=== PATIENT | female | born 1930 | race African-American/Black ===

== ENCOUNTER 2018-07-07 17:24 | Inpatient (IN) ==
[2018-07-07] MEDS ORDERED: hydrALAZINE 20 MG/1 ML VIAL IV STA (18:58)
[2018-07-07] MEDS ORDERED: ONDANSETRON 4 MG/2 ML VIAL IV STA (19:17)
[2018-07-07 19:18] LABS: Basophils # 0.1 10*3/uL (0.0-0.2); Basophils % 1.1 % (0.0-0.8); Eosinophils # 0.1 10*3/uL (0.0-0.87); Eosinophils % 1.4 % (0.00-10.9); Hematocrit 38.9 VOL% (35.7-47.0); Hemoglobin 11.8 GM/DL (12.0-16.0); Immature Granulocytes % 0.4 %; Immature Granulocytes Absolute 0.03 #; Lymphocytes # 2.8 10*3/uL (1.4-4.0); Lymphocytes % 32.5 % (21.3-54.2); Mean Corpuscular HGB Conc 30.3 GM/DL (32-36); Mean Corpuscular Hemoglobin 28 PG (27-34); Mean Corpuscular Volume 92.6 FL (87-102); Mean Platelet Volume 11.8 FL (9.6-12.0); Monocytes # 0.9 10*3/uL (0.11-0.8); Monocytes % 10.5 % (1.7-12.7); Neutrophils # 4.6 10*3/uL (1.4-7.4); Neutrophils % 54.1 % (38.7-73.9); Platelet Count 222 T/CUMM (130-400); Red Cell Distribution Width 18.7 % (9.3-17.3); White Blood Count 8.5 T/CUMM (4-12)
[2018-07-07] MEDS ORDERED: ONDANSETRON 4 MG/2 ML VIAL ONE (19:18)
[2018-07-07 19:37] LABS: Albumin 3.8 G/DL (3.4-5.0); Bilirubin,Total 1.2 MG/DL (0.2-1.0); Calcium 8.8 MG/DL (8.5-10.1); Osmolality,Calculated 283.3 MOS/KG (273-304); Potassium 4.4 MMOL/L (3.5-5.1); Total Protein 7.4 G/DL (6.4-8.3)
[2018-07-07] MEDS ORDERED: MAGNESIUM SULF RIDER 2 GM in PREMIX 1 EACH IV PRN (20:27)
[2018-07-07] MEDS ORDERED: ONDANSETRON 4 MG/2 ML VIAL IV PRN (20:27)
[2018-07-07] MEDS ORDERED: ACETAMINOPHEN 325 MG TABLET PO PRN (20:27)
[2018-07-07] MEDS ORDERED: MAGNESIUM SULF RIDER 4 GM in PREMIX 1 EACH IV PRN (20:27)
[2018-07-07] MEDS ORDERED: PANTOPRAZOLE 40 MG VIAL IV STA ×2 (20:35→20:36)
[2018-07-07] MEDS ORDERED: FUROSEMIDE 40 MG/4 ML VIAL IV STA ×2 (20:50→21:24)
[2018-07-07] MEDS ORDERED: OXAZEPAM 10 MG CAPSULE PO SCH (21:24)
[2018-07-07] MEDS ORDERED: ALBUTEROL 2.5 MG/3 ML NEB RESP TX PRN (21:24)
[2018-07-07] MEDS: ENOXAPARIN 40 MG/0.4 ML SYRINGE SUBCUT SCH (22:29)
[2018-07-07] MEDS: OXAZEPAM 10 MG CAPSULE PO SCH (22:30)
[2018-07-07] MEDS: MECLIZINE 25 MG TABLET PO SCH (22:30)
[2018-07-07] MEDS: CARVEDILOL 25 MG TABLET PO SCH (22:30)
[2018-07-08 07:55] LABS: Albumin 3.4 G/DL (3.4-5.0); Bilirubin,Total 1.2 MG/DL (0.2-1.0); Calcium 8.6 MG/DL (8.5-10.1); Osmolality,Calculated 286.1 MOS/KG (273-304); Potassium 4.3 MMOL/L (3.5-5.1); Total Protein 6.8 G/DL (6.4-8.3)
[2018-07-08] MEDS: LORATADINE 10 MG TABLET PO SCH (08:43)
[2018-07-08] MEDS: CARVEDILOL 25 MG TABLET PO SCH ×2 (08:43→17:38)
[2018-07-08] MEDS: VENLAFAXINE 75 MG TABLET PO SCH (08:43)
[2018-07-08] MEDS: CLOPIDOGREL 75 MG TABLET PO SCH (08:43)
[2018-07-08] MEDS: MECLIZINE 25 MG TABLET PO SCH ×2 (08:43→21:35)
[2018-07-08] MEDS: PANTOPRAZOLE 40 MG TABLET PO SCH (08:43)
[2018-07-08] MEDS: FUROSEMIDE 40 MG/4 ML VIAL IV SCH ×2 (08:44→17:38)
[2018-07-08] MEDS: SPIRONOLACTONE 25 MG TABLET PO SCH (08:44)
[2018-07-08] MEDS: DONEPEZIL 10 MG TABLET PO SCH (08:44)
[2018-07-08] MEDS: ASPIRIN EC 81 MG TABLET PO SCH (08:46)
[2018-07-08] MEDS ORDERED: ENALAPRIL 10 MG TABLET PO SCH (09:00)
[2018-07-08] MEDS ORDERED: ENALAPRIL 20 MG TABLET PO SCH (13:57)
[2018-07-08] MEDS ORDERED: FUROSEMIDE 40 MG/4 ML VIAL IV ONE (14:11)
[2018-07-08] MEDS: INSULIN REGULAR 100 UNIT/ML SUBCUT SCH ×2 (17:13→21:42)
[2018-07-08] MEDS: ENOXAPARIN 40 MG/0.4 ML SYRINGE SUBCUT SCH (21:35)
[2018-07-08] MEDS: OXAZEPAM 10 MG CAPSULE PO SCH (22:35)
[2018-07-09 05:54] LABS: Basophils # 0.1 10*3/uL (0.0-0.2); Eosinophils # 0.2 10*3/uL (0.0-0.87); Eosinophils % 3.1 % (0.00-10.9); Hematocrit 38.7 VOL% (35.7-47.0); Hemoglobin 12.1 GM/DL (12.0-16.0); Immature Granulocytes % 0.1 %; Immature Granulocytes Absolute 0.01 #; Lymphocytes # 2.7 10*3/uL (1.4-4.0); Lymphocytes % 38.1 % (21.3-54.2); Mean Corpuscular HGB Conc 31.3 GM/DL (32-36); Mean Corpuscular Hemoglobin 29 PG (27-34); Mean Corpuscular Volume 91.9 FL (87-102); Mean Platelet Volume 11.8 FL (9.6-12.0); Monocytes # 0.8 10*3/uL (0.11-0.8); Monocytes % 11.3 % (1.7-12.7); Neutrophils # 3.3 10*3/uL (1.4-7.4); Neutrophils % 46.4 % (38.7-73.9); Platelet Count 215 T/CUMM (130-400); Red Blood Count 4.21 MC/CUMM (3.8-5.5); Red Cell Distribution Width 18.6 % (9.3-17.3); White Blood Count 7.2 T/CUMM (4-12)
[2018-07-09 06:13] LABS: Calcium 8.5 MG/DL (8.5-10.1); Osmolality,Calculated 281.4 MOS/KG (273-304); Potassium 3.7 MMOL/L (3.5-5.1)
[2018-07-09 06:16] LABS: Risk Ratio 3.42; VLDL CHOLESTEROL 12.6 MG/DL
[2018-07-09] MEDS: INSULIN REGULAR 100 UNIT/ML SUBCUT SCH ×4 (07:52→21:19)
[2018-07-09] MEDS: CLOPIDOGREL 75 MG TABLET PO SCH (08:02)
[2018-07-09] MEDS: CARVEDILOL 25 MG TABLET PO SCH ×2 (08:02→16:39)
[2018-07-09] MEDS: VENLAFAXINE 75 MG TABLET PO SCH (08:02)
[2018-07-09] MEDS: PANTOPRAZOLE 40 MG TABLET PO SCH (08:02)
[2018-07-09] MEDS: ENALAPRIL 10 MG TABLET PO SCH (08:02)
[2018-07-09] MEDS: DONEPEZIL 10 MG TABLET PO SCH (08:02)
[2018-07-09] MEDS: ASPIRIN EC 81 MG TABLET PO SCH (08:02)
[2018-07-09] MEDS: SPIRONOLACTONE 25 MG TABLET PO SCH (08:02)
[2018-07-09] MEDS: LORATADINE 10 MG TABLET PO SCH (08:02)
[2018-07-09] MEDS: MECLIZINE 25 MG TABLET PO SCH ×2 (08:02→21:18)
[2018-07-09] MEDS: FUROSEMIDE 40 MG/4 ML VIAL IV SCH ×2 (08:03→16:39)
[2018-07-09] MEDS ORDERED: BISACODYL 10 MG SUPP RECTAL ONE (10:00)
[2018-07-09] MEDS: SIMETHICONE CHEW 125 MG TABLET PO SCH ×4 (12:01→21:18)
[2018-07-09] MEDS: POLYETHYLENE GLYCOL POWDER 17 GM PACK PO SCH ×2 (12:13→21:18)
[2018-07-09 13:10] LABS: Troponin I 0.046 NG/ML (0.00-0.045)
[2018-07-09 15:24] LABS: Troponin I 0.046 NG/ML (0.00-0.045)
[2018-07-09 19:19] LABS: Troponin I 0.047 NG/ML (0.00-0.045)
[2018-07-09] MEDS: ENOXAPARIN 40 MG/0.4 ML SYRINGE SUBCUT SCH (21:19)
[2018-07-09] MEDS: OXAZEPAM 10 MG CAPSULE PO SCH (21:44)
[2018-07-10 04:40] LABS: Basophils # 0.1 10*3/uL (0.0-0.2); Basophils % 0.9 % (0.0-0.8); Eosinophils # 0.3 10*3/uL (0.0-0.87); Eosinophils % 3.7 % (0.00-10.9); Immature Granulocytes % 0.3 %; Immature Granulocytes Absolute 0.02 #; Lymphocytes # 2.5 10*3/uL (1.4-4.0); Lymphocytes % 36.3 % (21.3-54.2); Mean Corpuscular HGB Conc 29.7 GM/DL (32-36); Mean Corpuscular Hemoglobin 28 PG (27-34); Mean Corpuscular Volume 93.6 FL (87-102); Mean Platelet Volume 11.8 FL (9.6-12.0); Monocytes # 0.8 10*3/uL (0.11-0.8); Monocytes % 11.7 % (1.7-12.7); Neutrophils # 3.2 10*3/uL (1.4-7.4); Neutrophils % 47.1 % (38.7-73.9); Platelet Count 215 T/CUMM (130-400); Red Blood Count 4.35 MC/CUMM (3.8-5.5); Red Cell Distribution Width 18.3 % (9.3-17.3); White Blood Count 6.8 T/CUMM (4-12)
[2018-07-10 04:47] LABS: Hemoglobin 12.2 GM/DL (12.0-16.0)
[2018-07-10 04:48] LABS: Hematocrit 40.5 VOL% (35.7-47.0)
[2018-07-10 04:52] LABS: Calcium 8.1 MG/DL (8.5-10.1); Osmolality,Calculated 275.7 MOS/KG (273-304); Potassium 4.2 MMOL/L (3.5-5.1)
[2018-07-10] MEDS: VENLAFAXINE 75 MG TABLET PO SCH (09:45)
[2018-07-10] MEDS: MECLIZINE 25 MG TABLET PO SCH (09:45)
[2018-07-10] MEDS: INSULIN REGULAR 100 UNIT/ML SUBCUT SCH ×2 (09:45→12:02)
[2018-07-10] MEDS: SIMETHICONE CHEW 125 MG TABLET PO SCH ×2 (09:45→12:49)
[2018-07-10] MEDS: LORATADINE 10 MG TABLET PO SCH (09:45)
[2018-07-10] MEDS: SPIRONOLACTONE 25 MG TABLET PO SCH (09:45)
[2018-07-10] MEDS: FUROSEMIDE 40 MG/4 ML VIAL IV SCH (09:46)
[2018-07-10] MEDS: POLYETHYLENE GLYCOL POWDER 17 GM PACK PO SCH (09:46)
[2018-07-10] MEDS: CLOPIDOGREL 75 MG TABLET PO SCH (09:46)
[2018-07-10] MEDS: ASPIRIN EC 81 MG TABLET PO SCH (09:46)
[2018-07-10] MEDS: ENALAPRIL 10 MG TABLET PO SCH (09:50)
[2018-07-10] MEDS: CARVEDILOL 25 MG TABLET PO SCH (09:50)
[2018-07-10] MEDS: DONEPEZIL 10 MG TABLET PO SCH (09:52)
[2018-07-10] MEDS: PANTOPRAZOLE 40 MG TABLET PO SCH (09:52)
[2018-07-10 12:03] VITALS: BP 120/70
[2018-07-10] MEDS ORDERED: FUROSEMIDE 40 MG TABLET PO SCH (16:00)
== END 2018-07-10 13:29 | disposition home health service (06) | DRG 293 ==
LOC: EDUNIT# → EDBD → N.ED 17:24 → N.EDINP 20:27 → N.5E 21:10
PROVIDERS: ADMIT Internal Medicine; ATTEND Internal Medicine

== ENCOUNTER 2018-10-30 13:38 | Observation (INO) ==
[2018-10-30 14:11] LABS: Apearance,Urine CLEAR (Clear); Bacteria,Urine Occasional /HPF (Few); Basophils # 0.1 10*3/uL (0.0-0.2); Basophils % 0.7 % (0.0-0.8); Bilirubin,Urine Negative (Negative); Blood, Urine Negative (Negative); Eosinophils # 0.3 10*3/uL (0.0-0.87); Eosinophils % 3.6 % (0.00-10.9); Glucose,Urine (UA) Negative (Negative); Hematocrit 30.4 VOL% (35.7-47.0); Hemoglobin 9.5 GM/DL (12.0-16.0); Hyaline Casts,Urine 31 /LPF (0-3); Immature Granulocytes % 0.6 %; Immature Granulocytes Absolute 0.05 #; Ketones,Urine Negative (Negative); Lymphocytes # 2.7 10*3/uL (1.4-4.0); Mean Corpuscular HGB Conc 31.3 GM/DL (32-36); Mean Corpuscular Volume 93.3 FL (87-102); Mean Platelet Volume 10.8 FL (9.6-12.0); Monocytes % 11.3 % (1.7-12.7); Mucus,Urine Occasional /LPF (Occasional); NRBC # 0.06 10*3/uL; Neutrophils % 51.8 % (38.7-73.9); Nitrite,Urine Negative (Negative); Platelet Count 207 T/CUMM (130-400); Protein,Urine Negative; RBC,Urine 4 /HPF (0-4); Red Blood Count 3.26 MC/CUMM (3.8-5.5); Red Cell Distribution Width 23.2 % (9.3-17.3); Squamous Epithelial Cell,Urine Occasional /HPF (0-10); Urine Color Yellow (Yellow); Urine Specific Gravity 1.016 (1.001-1.035); WBC,Urine 1 /HPF (0-6); White Blood Count 8.4 T/CUMM (4-12)
[2018-10-30 14:43] LABS: Anisocytosis 2+
[2018-10-30 14:45] LABS: Hypochromasia 1+; Ovalocytes 1+; Polychromasia 1+
[2018-10-30 14:47] LABS: Macrocytosis 1+; Platelet Estimate Normal
[2018-10-30 14:48] LABS: Albumin 3.8 G/DL (3.4-5.0); Bilirubin,Total 0.8 MG/DL (0.2-1.0); Total Protein 7.3 G/DL (6.4-8.3)
[2018-10-30] MEDS ORDERED: FUROSEMIDE 40 MG/4 ML VIAL IV STA (16:32)
[2018-10-30] MEDS ORDERED: FUROSEMIDE 40 MG/4 ML VIAL ONE (16:34)
[2018-10-30] MEDS ORDERED: MAGNESIUM SULF RIDER 4 GM in PREMIX 1 EACH IV PRN (16:36)
[2018-10-30] MEDS ORDERED: MAGNESIUM SULF RIDER 2 GM in PREMIX 1 EACH IV PRN (16:36)
[2018-10-30] MEDS ORDERED: ONDANSETRON 4 MG/2 ML VIAL IV PRN (16:36)
[2018-10-30] MEDS ORDERED: GLUCAGON 1 MG VIAL IM PRN (16:57)
[2018-10-30] MEDS ORDERED: DEXTROSE 10% 25 GM/250 ML BAG IV PRN (16:57)
[2018-10-30] MEDS ORDERED: PANTOPRAZOLE 40 MG TABLET PO SCH (17:00)
[2018-10-30] MEDS ORDERED: ALBUTEROL 2.5 MG/3 ML NEB RESP TX PRN (17:24)
[2018-10-30] MEDS ORDERED: NITROGLYCERIN SL 0.4 MG TABLET SL PRN (17:24)
[2018-10-30] MEDS ORDERED: CARVEDILOL 25 MG TABLET PO SCH (21:00)
[2018-10-30] MEDS: MECLIZINE 25 MG TABLET PO SCH (22:04)
[2018-10-30] MEDS: CARVEDILOL 12.5 MG TABLET PO SCH (22:04)
[2018-10-30] MEDS: INSULIN LISPRO 100 UNIT/ML SUBCUT SCH (22:29)
[2018-10-31] MEDS ORDERED: OXAZEPAM 10 MG CAPSULE PO PRN (00:05)
[2018-10-31 05:08] LABS: Basophils # 0.1 10*3/uL (0.0-0.2); Eosinophils # 0.4 10*3/uL (0.0-0.87); Eosinophils % 4.5 % (0.00-10.9); Hematocrit 32.1 VOL% (35.7-47.0); Immature Granulocytes % 0.5 %; Immature Granulocytes Absolute 0.04 #; Lymphocytes # 2.5 10*3/uL (1.4-4.0); Lymphocytes % 30.8 % (21.3-54.2); Mean Corpuscular HGB Conc 31.2 GM/DL (32-36); Mean Corpuscular Volume 92.8 FL (87-102); Mean Platelet Volume 11.3 FL (9.6-12.0); Monocytes % 11.4 % (1.7-12.7); NRBC # 0.03 10*3/uL; Neutrophils % 51.8 % (38.7-73.9); Platelet Count 210 T/CUMM (130-400); Red Blood Count 3.46 MC/CUMM (3.8-5.5); Red Cell Distribution Width 22.8 % (9.3-17.3); White Blood Count 8.2 T/CUMM (4-12)
[2018-10-31 05:35] LABS: Anisocytosis 1+; Microcytosis 1+; Target Cells Few
[2018-10-31 05:36] LABS: Platelet Estimate Normal; Polychromasia Few
[2018-10-31 05:37] LABS: Blood Urea Nitrogen 20 MG/DL (7-18); Calcium 8.5 MG/DL (8.5-10.1); Glucose 97 MG/DL (74-106); HDL Cholesterol 28 MG/DL (40-60); Risk Ratio 4.89; Triglycerides 96 MG/DL (2-150); Troponin I 0.061 NG/ML (0.00-0.045); VLDL CHOLESTEROL 19.2 MG/DL
[2018-10-31] MEDS ORDERED: POTASSIUM CHLORIDE 20 MEQ TABLET PO PRN (06:16)
[2018-10-31] MEDS: POTASSIUM CHLORIDE 20 MEQ/15 ML UDCUP PER TUBE PRN ×4 (07:08→16:44)
[2018-10-31] MEDS ORDERED: QUINAPRIL 5 MG TABLET PO SCH (09:00)
[2018-10-31] MEDS: INSULIN LISPRO 100 UNIT/ML SUBCUT SCH ×4 (09:24→21:27)
[2018-10-31] MEDS: VENLAFAXINE 75 MG TABLET PO SCH (09:25)
[2018-10-31] MEDS: FUROSEMIDE 40 MG/4 ML VIAL IV SCH ×2 (09:25→16:45)
[2018-10-31] MEDS: CLOPIDOGREL 75 MG TABLET PO SCH (09:26)
[2018-10-31] MEDS: DONEPEZIL 10 MG TABLET PO SCH (09:26)
[2018-10-31] MEDS: PANTOPRAZOLE 40 MG TABLET PO SCH (09:26)
[2018-10-31] MEDS: QUINAPRIL 5 MG TABLET PO SCH (09:26)
[2018-10-31] MEDS: SPIRONOLACTONE 25 MG TABLET PO SCH (09:26)
[2018-10-31] MEDS: ASPIRIN EC 81 MG TABLET PO SCH (09:27)
[2018-10-31] MEDS: MECLIZINE 25 MG TABLET PO SCH ×2 (09:29→21:21)
[2018-10-31] MEDS: CARVEDILOL 12.5 MG TABLET PO SCH (09:42)
[2018-10-31] MEDS: CARVEDILOL 25 MG TABLET PO SCH (16:44)
[2018-10-31] MEDS ORDERED: CYCLOBENZAPRINE 10 MG TABLET PO ONE (19:17)
[2018-10-31] MEDS ORDERED: MAGNESIUM OXIDE 400 MG TABLET PO ONE (19:26)
[2018-10-31] MEDS: MAGNESIUM OXIDE 400 MG TABLET PO SCH (21:27)
[2018-11-01 03:48] LABS: Basophils # 0.1 10*3/uL (0.0-0.2); Basophils % 1.1 % (0.0-0.8); Eosinophils # 0.4 10*3/uL (0.0-0.87); Eosinophils % 5.1 % (0.00-10.9); Hematocrit 33.5 VOL% (35.7-47.0); Hemoglobin 10.2 GM/DL (12.0-16.0); Immature Granulocytes % 0.4 %; Immature Granulocytes Absolute 0.03 #; Lymphocytes # 2.9 10*3/uL (1.4-4.0); Mean Corpuscular HGB Conc 30.4 GM/DL (32-36); Mean Corpuscular Volume 94.9 FL (87-102); Monocytes % 8.9 % (1.7-12.7); NRBC # 0.02 10*3/uL; Neutrophils % 45.5 % (38.7-73.9); Platelet Count 212 T/CUMM (130-400); Red Blood Count 3.53 MC/CUMM (3.8-5.5); Red Cell Distribution Width 23.1 % (9.3-17.3); White Blood Count 7.5 T/CUMM (4-12)
[2018-11-01 04:14] LABS: Calcium 8.6 MG/DL (8.5-10.1); Osmolality,Calculated 280.4 MOS/KG (273-304)
[2018-11-01 04:48] LABS: Anisocytosis 1+; Hypochromasia 1+; Microcytosis 1+; Ovalocytes Slight; Platelet Estimate Adequate; Polychromasia 1+
[2018-11-01 07:55] VITALS: BP 127/66
[2018-11-01] MEDS: INSULIN LISPRO 100 UNIT/ML SUBCUT SCH (08:33)
[2018-11-01] MEDS: FUROSEMIDE 40 MG/4 ML VIAL IV SCH (08:39)
[2018-11-01] MEDS: SPIRONOLACTONE 25 MG TABLET PO SCH (08:40)
[2018-11-01] MEDS: PANTOPRAZOLE 40 MG TABLET PO SCH (08:40)
[2018-11-01] MEDS: VENLAFAXINE 75 MG TABLET PO SCH (08:40)
[2018-11-01] MEDS: CLOPIDOGREL 75 MG TABLET PO SCH (08:40)
[2018-11-01] MEDS: CARVEDILOL 25 MG TABLET PO SCH (08:40)
[2018-11-01] MEDS: ASPIRIN EC 81 MG TABLET PO SCH (08:40)
[2018-11-01] MEDS: DONEPEZIL 10 MG TABLET PO SCH (08:40)
[2018-11-01] MEDS: MECLIZINE 25 MG TABLET PO SCH (08:40)
[2018-11-01] MEDS: QUINAPRIL 5 MG TABLET PO SCH (08:40)
[2018-11-01] MEDS: MAGNESIUM OXIDE 400 MG TABLET PO SCH (08:41)
== END 2018-11-01 11:07 | disposition home health service (06) ==
LOC: EDBD → EDUNIT# → N.ED 13:38 → N.EDINP 13:38 → SUATTDRO 16:36 → N.TELEN 17:54
PROVIDERS: ADMIT Internal Medicine; ATTEND Internal Medicine